=== PATIENT | female | born 1985 | race Two or more races ===

== ENCOUNTER → 2016-05-04 | Outpatient (CLI) | payer MEDICAID | LOC: CIMAGING 13:10 | PROVIDERS: ATTEND Family Medicine | DX: J33.8 Other polyp of sinus (principal); R51 Headache | CPT/HCPCS: 70450-PO ==

== ENCOUNTER 2016-07-10 20:01 | Emergency (ER) | payer MEDICAID ==
[2016-07-10 20:14] VITALS: BP 126/79; PULSE 93; RESP 16; TEMP 98.6; O2SAT 98
--- NOTE | 2016-07-10 21:00 | EDPHY ---
H & P Smoking Status: Former smoker Time Seen by Provider: 07/10/16 20:40 HPI/ROS: CHIEF COMPLAINT: Right wrist pain HISTORY OF PRESENT ILLNESS: 30-year-old female presents emergency department complaining of right wrist pain x1 week. Patient had a fall on outstretched hand, she had pain and swelling to her wrist, swelling has subsided though she continues with pain. She denies numbness or tingling to this wrist, denies previous injury to this wrist, no fevers, no other complaints. She denies elbow pain. (Shannen Tan) Physical Exam: GEN: Awake, alert, oriented, no acute distress RESP: nl resp effort MSK: Right wrist with full active flexion and extension, no swelling, tenderness to 1st dorsal compartment, positive [place], tenderness to distal radius, no ulnar styloid tenderness, no snuffbox tenderness, no elbow tenderness SKIN: No break in skin (Shannen Tan) Constitutional: Initial Vital Signs Temperature (C) 37 C 07/10/16 20:12 Heart Rate 93 07/10/16 20:12 Respiratory Rate 16 07/10/16 20:12 Blood Pressure 126/79 H 07/10/16 20:12 O2 Sat (%) 98 07/10/16 20:12 O2 Delivery Mode Room Air Allergies/Adverse Reactions: No Known Allergies Allergy (Unverified 07/10/16 20:10) Home Medications: Medication Instructions Recorded Multivitamins [Multivitamin (*)] 1 each PO DAILY 02/05/16 Amitriptyline HCl 07/10/16 MDM/Departure - [facility] Imaging: I viewed and interpreted images myself - [facility] ED Course/Re-evaluation: The patient wasevaluatedand managed by themutlevel provider. My co- signature indicates that maryana reviewed this chart and I agree with the findings and plan of care asdocumented. I am the secondary supervising physician. (Michelle Holden) - Depart Disposition: Home, Routine, Self-Care Clinical Impression: Right wrist sprain Condition: Good Instructions: Wrist Sprain (ED) Additional Instructions: Rest, ice, elevate, take 600 mg of ibuprofen with food for 3-5 days, wear Velcro splint for 7 days, follow up with the orthopedist for symptoms that are not improving in the next 5-7 days. Return to the emergency department for worsening symptoms, new symptoms or concerns. Referrals: Luis Rivera MD [Medical Doctor] - As per Instructions (orthopedist television production clerk)
== END 2016-07-10 21:10 | disposition home or self-care (01) ==
DX: S63.501A Unspecified sprain of right wrist, initial encounter (principal); Z87.891 Personal history of nicotine dependence; W18.39XA Other fall on same level, initial encounter
CPT/HCPCS: L3807

== ENCOUNTER 2016-08-08 10:58 | Emergency (ER) | payer OTHER, MEDICAID ==
[2016-08-08 11:05] VITALS: TEMP 98.2
[2016-08-08] MEDS ORDERED: OXYCODONE/APAP 5/325 TAB PO ONE ×2 (11:48→12:14)
[2016-08-08] MEDS ORDERED: DIAZEPAM 5 MG TAB PO ONE (11:48)
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
[2016-08-08] MEDS ORDERED: LIDOCAINE 5% 1 EA PATCH TD ONE (12:31)
[2016-08-08 12:52] VITALS: BP 132/78; PULSE 75; RESP 16; O2SAT 96
[2016-08-08] MEDS ORDERED: PATCH REMOVAL 1 EA PATCH TD SCH (21:00)
[2016-08-09] MEDS ORDERED: LIDOCAINE 5% 1 EA PATCH TD SCH (09:00)
== END 2016-08-08 12:52 | disposition home or self-care (01) ==
DX: S16.1XXA Strain of muscle, fascia and tendon at neck level, initial encounter (principal); Z87.891 Personal history of nicotine dependence; V49.49XA Driver injured in collision with other motor vehicles in traffic accident, initial encounter; Y92.410 Unspecified street and highway as the place of occurrence of the external cause; Y99.8 Other external cause status; Y93.89 Activity, other specified